=== PATIENT | female | born 2000 | race African-American/Black ===

== ENCOUNTER 2023-03-29 21:04 | Emergency (ER) | payer MEDICAID, OTHER ==
[~2023-03-29] VITALS: Ht 157.5 cm; Wt 60.0 kg
[2023-03-29 21:19] VITALS: BP 119/71
[2023-03-29] MEDS ORDERED: ACETAMINOPHEN 325MG TABLET PO ONE (23:45)
[2023-03-30] MEDS ORDERED: IBUP-2028 MT (00:43)
== END 2023-03-30 01:48 | disposition home or self-care (01) ==
LOC: ER 21:04
DX: J02.9 Acute pharyngitis, unspecified (principal); D64.9 Anemia, unspecified
CPT/HCPCS: 81025; 87070; 87430; 99283